=== PATIENT | female | born 1990 | race Caucasian/White ===

== ENCOUNTER 2021-05-02 07:19 | Emergency (ER) | payer OTHER ==
[~2021-05-02] VITALS: Ht 167.6 cm; Wt 80.3 kg
--- NOTE | 2021-05-02 07:25 | NUR ---
TO ER BED 3, [id number] C/O EPIGASTRIC PAIN W/ NAUSEA AND VOMITING SINCE FRIDAY. AAXO3, BREATHING EVEN AND NON LABORED, CHANGED INTO A GOWN, CONNECTED TO MONITOR, AWAITING MD ORDERS
[2021-05-02] MEDS ORDERED: MORPHINE SULFATE INJ 2 MG/ML DISP.SYRIN IV ONE (07:30)
[2021-05-02] MEDS ORDERED: FAMOTIDINE/PF INJ 20 MG/2 ML VIAL IV ONE ×2 (07:30→07:37)
[2021-05-02] MEDS ORDERED: ONDANSETRON HCL/PF 4 MG/2 ML VIAL IVP ONE (07:30)
[2021-05-02] MEDS ORDERED: IV NS 0.9% 1,000 ML BAG IV ONE (07:30)
--- NOTE | 2021-05-02 07:30 | NUR ---
SALINE LOCK ESTABLISHED, BLOOD DRAWN AND SENT TO LAB
[2021-05-02] MEDS ORDERED: ONDANSETRON HCL/PF 4 MG/2 ML VIAL ONE (07:36)
[2021-05-02] MEDS ORDERED: MORPHINE SULFATE INJ 4 MG/ML DISP.SYRIN ONE (07:37)
[2021-05-02 07:52] LABS: BASOPHILS # (AUTO) 0.1 K/uL (0.0-0.2); BASOPHILS % (AUTO) 0.6 % (0.0-2.0); EOSINOPHILS % (AUTO) 0.6 % (0.0-6.0); HEMATOCRIT 37 % (33-45); LYMPHOCYTES # (AUTO) 2.8 K/uL (0.8-4.8); LYMPHOCYTES % (AUTO) 16.6 % (20.0-44.0); MEAN CORPUSCULAR HGB CONC 33 g/dl (31.0-36.0); MEAN CORPUSCULAR VOLUME 85 fL (82-100); NEUTROPHILS # (AUTO) 12.9 K/uL (1.8-8.9); NEUTROPHILS % (AUTO) 76.2 % (43.0-81.0); PLATELET COUNT (AUTO) 342 K/uL (150-450); RED BLOOD CELL COUNT(AUTO) 4.27 MIL/uL (4.0-5.2); WHITE BLOOD COUNT (AUTO) 16.9 K/uL (4.3-11.0)
[2021-05-02 08:02] LABS: CREATININE 0.7 mg/dL (0.6-1.3); POTASSIUM 3.5 mmol/L (3.5-5.1)
[2021-05-02 08:08] LABS: ALBUMIN 4.1 g/dL (3.4-5.0); BILIRUBIN,DIRECT 0.1 mg/dL (0.0-0.2); BILIRUBIN,TOTAL 0.3 mg/dL (0.2-1.0); TOTAL PROTEIN, SERUM 7.3 g/dL (6.4-8.2)
[2021-05-02] MEDS ORDERED: HALOPERIDOL LACTATE INJ 5 MG/ML VIAL ONE (08:16)
[2021-05-02] MEDS ORDERED: HALOPERIDOL LACTATE INJ 5 MG/ML VIAL IV ONE (08:30)
--- NOTE | 2021-05-02 08:37 | NUR ---
URINE COLLECTED AND SENT TO LAB
[2021-05-02 09:11] LABS: BILIRUBIN,URINE NEGATIVE (NEGATIVE); COLOR,URINE YELLOW (YELLOW); LEUKOCYTE ESTERASE ,URINE NEGATIVE (NEGATIVE); NITRITE, URINE NEGATIVE (NEGATIVE); PROTEIN,URINE NEGATIVE (NEGATIVE); UGLUCOSE NEGATIVE (NEGATIVE); UROBILINOGEN,URINE 0.2 EU/dL (0.2)
--- NOTE | 2021-05-02 09:34 | NUR ---
TAKEN TO CT
[2021-05-02] MEDS ORDERED: CT SWABBABLE VALVE TRANS SET 1 EA INFUS.SET MC ONE (09:37)
[2021-05-02] MEDS ORDERED: IOHEXOL-300 100 ML VIAL IV ONE (09:37)
[2021-05-02] MEDS ORDERED: IV NS 0.9% 250 ML IV ONE (09:37)
[2021-05-02 09:59] LABS: BACTERIA,URINE Moderate /HPF (None Seen); MUCUS,URINE Moderate /LPF (None Seen); SQUAMOUS EPITHELIAL CELL,UR Moderate /HPF (None Seen)
[2021-05-02] MEDS ORDERED: ONDA4TAB5 PO (10:51)
[2021-05-02] MEDS ORDERED: OMEP20CA15 PO (10:51)
--- NOTE | 2021-05-02 11:10 | NUR ---
Patient discharged to home in stable condition. Written and verbal after care instructions given. Erx medication info provided. Patient verbalizes understanding of instruction.
--- NOTE | 2021-05-02 11:10 | NUR ---
IV removed. Catheter intact and site benign. Pressure and 4x4 applied to site. No bleeding noted.
[2021-05-02 11:12] VITALS: BP 114/80
== END 2021-05-02 11:13 | disposition home or self-care (01) ==
LOC: ER 07:22
DX: R11.10 Vomiting, unspecified (principal); R10.31 Right lower quadrant pain; R10.84 Generalized abdominal pain
CPT/HCPCS: 36415; 74177; 80048; 80076; 81001; 83690; 84703; 85025; 87077; 87086; 96361; 96374; 96375; 99285; J1630; J2270; J2405; J3490; J7030; J7050; Q9967